=== PATIENT | female | born 1965 | race Caucasian/White ===

== ENCOUNTER 2018-11-24 07:33 | Day surgery (SDC) | payer BC ==
[~2018-11-24 07:33] MED LIST: BUPIVACAINE 0.5% (SDV) 30 ML, morphine SULFATE (PF) 8 MG, EPINEPHrine 0.3 MG, KETOROLAC... IRR; SOD CHLORIDE 0.9% 100 ML, TRANEXAMIC ACID 3,000 MG IRR; TRANEXAMIC ACID 1GM/100ML(PMX) 100 ML IVPB
[2018-11-24] MEDS: GABAPENTIN 300 MG CAP PO (08:41)
[2018-11-24] MEDS: DEXAMETHASONE 1 MG TAB PO (08:42)
[2018-11-24] MEDS: LACTATED RINGER'S 1,000 ML IV (08:51)
[2018-11-24] MEDS ORDERED: ALBUTEROL 0.083% (NEB) 2.5 MG/3 ML AMP HHN (09:30)
[2018-11-24] MEDS ORDERED: ONDANSETRON 4 MG INJ IV (09:30)
[2018-11-24] MEDS ORDERED: MEPERIDINE 25 MG INJ IV (09:30)
[2018-11-24] MEDS ORDERED: DIPHENHYDRAMINE 50 MG INJ IV (09:30)
[2018-11-24] MEDS ORDERED: METOCLOPRAMIDE 10 MG INJ IV (09:30)
[2018-11-24] MEDS ORDERED: HYDROmorphONE 1 MG/5 ML IV SYRINGE IV ×2 (09:30)
[2018-11-24] MEDS ORDERED: FENTAnyl 50 MCG/ML VIAL IV (09:30)
[2018-11-24] MEDS ORDERED: FENTAnyl 50 MCG/ML VIAL (09:33)
[2018-11-24] MEDS: CEFAZOLIN 2 GM/50 ML (PMX) 50 ML IVPB (09:55)
[2018-11-24] MEDS ORDERED: THROMBIN 5000 UNIT VIAL (10:10)
[2018-11-24] MEDS: POLYMYXIN/BACITRACIN 1L IRRIG (10:10)
[2018-11-24] MEDS ORDERED: CA CHLORIDE 10% 10 ML SYRINGE (10:11)
[2018-11-24] MEDS ORDERED: ROCURONIUM 50 MG INJ (10:17)
[2018-11-24] MEDS ORDERED: LIDOCAINE 100 MG SYRINGE (10:17)
[2018-11-24] MEDS ORDERED: SUCCINYLCHOLINE CHLORIDE 100 MG/5 ML SYG IV (10:17)
[2018-11-24] MEDS ORDERED: CEFAZOLIN 1 GM INJ (10:17)
[2018-11-24] MEDS ORDERED: PROPOFOL 20 ML (10:17)
[2018-11-24] MEDS ORDERED: SUGAMMADEX SODIUM 200 MG/2 ML VIAL IV (10:48)
[2018-11-24] MEDS: HYDROmorphONE 1 MG/5 ML IV SYRINGE IV (12:04)
[2018-11-24] MEDS: FENTAnyl 50 MCG/ML VIAL IV (12:04)
== END 2018-11-24 14:19 | disposition home or self-care (01) ==
LOC: SUR 07:33 → SDS 07:33 → SUR 14:19
DX: S76.311D Strain of muscle, fascia and tendon of the posterior muscle group at thigh level, right thigh, subsequent encounter (principal); M70.71 Other bursitis of hip, right hip; X58.XXXD Exposure to other specified factors, subsequent encounter; G58.8 Other specified mononeuropathies
CPT/HCPCS: 27060; 86999